=== PATIENT | male | born 1955 | race Caucasian/White ===

== ENCOUNTER → 2019-06-24 13:08 | Outpatient (BNVA) | payer MEDICARE, OTHER, SELFPAY | PROVIDERS: Family Provider Family Medicine; Visit Provider Otolaryngology | DX: H90.3 Sensorineural hearing loss, bilateral (principal); J34.2 Deviated nasal septum; H93.13 Tinnitus, bilateral | CPT/HCPCS: 99203; 99214 ==

== ENCOUNTER 2020-06-11 21:47 | Emergency (ER) | payer MEDICARE, SELFPAY ==
[2020-06-11 21:59] VITALS: BP 171/85; PULSE 60; RESP 16; TEMP 36.6; O2SAT 95; BMI 26.4
[2020-06-11] MEDS: dexamethasone 4 mg Tablet 10 MG PO (22:30)
[2020-06-11] MEDS: clindamycin 150 mg Capsule 300 MG PO (22:30)
[2020-06-11 22:32] VITALS: RESP 16
[2020-06-11 22:55] VITALS: BP 158/88; PULSE 64; RESP 14; O2SAT 100
--- NOTE | 2020-06-12 07:52 | ED_ITS ---
HPI - Dental/Oral General: Chief complaint: Dental/Oral Stated complaint: facial swelling and pain following root canal Time Seen by Provider: 06/11/20 22:07 History of Present Illness: HPI Narrative: 65-year-old male who had a root canal on the right upper premolar on . He has had increasing pain since Friday with some swelling. He notes the swelling is to his right upper jaw along side of his nose. No fever. No drainage. MD Complaint: tooth pain Teeth map: 1. Onset (ago): hour(s) Duration: constant Severity: moderate Relieving factors: NSAIDs Exacerbating factors: chewing and cold Context: history of dental caries Associated symptoms: Reports gum swelling; Denies ear or mastoid pain, fever(s) or tongue swelling Review of Systems Const: Denies: fever(s) or chills ENMT: Denies: ear or mastoid pain Card: Denies: chest pain Resp: Denies: dyspnea Skin/Breast: Denies: rash All/Imm: Denies: tongue swelling FORMERLY [facility], 1928–1983 ED PFSH: Medical History (Updated 06/11/20 @ 22:33 by Marty Batres DO) Deviated septum Sensorineural hearing loss (SNHL) of both ears Family History Sister CAD (coronary artery disease) Grandmother CAD (coronary artery disease) Social History Smoking and tobacco status: never smoked Alcohol intake: former History of recent travel: No Physical Exam Const: COMMON NORMALS: no acute distress, patient oriented x3 and alert HENMT: COMMON NORMALS: external ears normal HEAD & SCALP: normal to inspection FACE & SINUS: face symmetric EXTERNAL EAR: Yes external ears normal MOUTH: Normal oral and palatal mucosa present TEETH & GINGIVA IMAGES: 1. Mild gingival swelling, some tooth discoloration and decay, no definite abscess. Neuro: COMMON NORMALS: patient oriented x3 SENSORIUM/ORIENTATION: Yes alert Course Vital Signs: Vital signs: Vital Signs Temperature 97.9 F 06/11/20 21:59 Pulse Rate 64 06/11/20 22:55 Respiratory Rate 14 06/11/20 22:55 Blood Pressure 158/88 06/11/20 22:55 Pulse Oximetry 100 06/11/20 22:55 Discharge Plan Discharge Patient Disposition: Home Clinical Impression: Gingival disease due to bacteria, Toothache Condition: Stable Prescriptions: New clindamycin HCl 300 mg capsule 300 mg PO TID 10 Days Qty: 30 RF: 0 tramadol 100 mg tablet 100 mg PO Q8H PRN (Reason: pain) Qty: 14 RF: 0 No Action glucose [Dex4 Glucose Pouch Pack] 4 gram tablet,chewable 4 gm PO Q15M PRNRF: 0 niacin 500 mg tablet 500 mg PO QDAY RF: 0 omega-3 fatty acids [Fish Oil Concentrate] 1,000 mg capsule 1,000 mg PO QDAY RF: 0 melatonin 10 mg capsule 10 mg PO ONCE RF: 0 Discharge Orders: Discharge ED (Routine); Ordered 06/11/20 Ordered By: Marty Batres Referrals: Junaid Myles DO [Primary Care Provider] - 4-7 days Discharge Diet: Advance as tolerated Discharge Activity: Increase activity as tolerated Patient Instructions: Toothache (ED) Activity Restrictions/Additional Instructions: Return for worsening swelling and pain despite treatment, fever greater than 100, vomiting liquids or medications, other concerning symptoms. Call your den tist in the morning for any further treatment options. Coding Level of Care Code ED [employer] Teacher for Dotty Cochran
== END 2020-06-11 22:56 | disposition home or self-care (01) ==
PROVIDERS: Emergency Provider Emergency Medicine; PCP Family Medicine
DX: K06.8 Other specified disorders of gingiva and edentulous alveolar ridge (principal)
CPT/HCPCS: 12345; 99281; 99283; J8540

== ENCOUNTER → 2022-02-08 09:42 | Outpatient (BNVA) | payer MEDICARE, SELFPAY | PROVIDERS: PCP Family Medicine; Visit Provider Family Medicine | DX: Z00.00 Encounter for general adult medical examination without abnormal findings (principal); N40.0 Benign prostatic hyperplasia without lower urinary tract symptoms; H90.3 Sensorineural hearing loss, bilateral; Z79.899 Other long term (current) drug therapy | CPT/HCPCS: 80053; 80061; G0103 ==

== ENCOUNTER → 2022-03-11 08:09 | Outpatient (BNVA) | payer MEDICARE, SELFPAY | PROVIDERS: PCP Family Medicine; Visit Provider Nurse Practitioner | DX: R97.20 Elevated prostate specific antigen [PSA] (principal); N40.0 Benign prostatic hyperplasia without lower urinary tract symptoms | CPT/HCPCS: 84153 ==

== ENCOUNTER → 2022-04-24 09:33 | Outpatient (BNVA) | payer MEDICARE, SELFPAY | PROVIDERS: PCP Family Medicine; Visit Provider Nurse Practitioner Family | DX: R05.9 Cough, unspecified (principal); J98.8 Other specified respiratory disorders; Z77.098 Contact with and (suspected) exposure to other hazardous, chiefly nonmedicinal, chemicals | CPT/HCPCS: 87400; 87426 ==

== ENCOUNTER → 2023-02-18 08:42 | Outpatient (BNVA) | payer MEDICARE, SELFPAY | PROVIDERS: PCP Family Medicine; Visit Provider Family Medicine | DX: Z00.00 Encounter for general adult medical examination without abnormal findings (principal); N40.0 Benign prostatic hyperplasia without lower urinary tract symptoms; R97.20 Elevated prostate specific antigen [PSA]; Z13.6 Encounter for screening for cardiovascular disorders | CPT/HCPCS: 80053; 80061; 84153 ==

== ENCOUNTER → 2024-02-16 09:35 | Outpatient (BNVA) | payer MEDICARE, SELFPAY | PROVIDERS: PCP Family Medicine; Visit Provider Family Medicine | DX: Z00.00 Encounter for general adult medical examination without abnormal findings (principal); N40.0 Benign prostatic hyperplasia without lower urinary tract symptoms; R97.20 Elevated prostate specific antigen [PSA] | CPT/HCPCS: 80053; 80061; 84153 ==

== ENCOUNTER → 2024-05-10 08:40 | Outpatient (BNVA) | payer MEDICARE, SELFPAY | PROVIDERS: PCP Family Medicine; Visit Provider Family Medicine | DX: N40.0 Benign prostatic hyperplasia without lower urinary tract symptoms | CPT/HCPCS: 84153 ==

== ENCOUNTER → 2024-12-09 10:26 | Outpatient (BNVA) | payer MEDICARE, SELFPAY | PROVIDERS: PCP Family Medicine; Visit Provider Family Medicine | DX: Z00.00 Encounter for general adult medical examination without abnormal findings (principal); N40.0 Benign prostatic hyperplasia without lower urinary tract symptoms; R97.20 Elevated prostate specific antigen [PSA] | CPT/HCPCS: 80053; 80061; G0103 ==